=== PATIENT | female | born 1945 | race Caucasian/White ===

== ENCOUNTER 2016-07-26 05:11 | Day surgery (SDC) | payer OTHER ==
[~2016-07-26] VITALS: Ht 167.6 cm; Wt 93.0 kg
[~2016-07-26 05:11] MED LIST: ALLOPURINOL300 MG PO; ATENOLOL50 MG PO; DESLORATADINE5 MG PO; JANUMET 50/11 TABLET PO; LOSARTAN POTASS25 MG PO; MAGNESIUM400 M1 PO; NASONEX17 GM BOTH NARES; PRAVACHOL40 MG PO; PROBIOTIC1 EAC2 PO; [UNRECOGNIZED DRUG - OTHER] PO
[2016-07-26 05:56] VITALS: BP 128/60
[2016-07-26 06:03] LABS: POINT-OF-CARE METER ID UU14174212
[2016-07-26 10:37] LABS: POINT-OF-CARE METER ID UU13113675; POINT-OF-CARE USER ID 515036437
[2016-07-26 11:32] VITALS: BP 132/63
[2016-07-26 12:39] VITALS: BP 130/63
[2016-07-26 13:10] VITALS: BP 175/80
== END 2016-07-26 13:17 | disposition home or self-care (01) ==
LOC: SDC 05:11
PROVIDERS: Otolaryngology
PROC: 09BV4ZZ Excision of Left Ethmoid Sinus, Percutaneous Endoscopic Approach (ICD-10-PCS; principal; 2016-07-26)
PROC: 095L0ZZ Destruction of Nasal Turbinate, Open Approach (ICD-10-PCS; principal; 2016-07-26)
PROC: 09BM0ZZ Excision of Nasal Septum, Open Approach (ICD-10-PCS; principal; 2016-07-26)
DX: J34.2 Deviated nasal septum (principal); J32.2 Chronic ethmoidal sinusitis; J31.0 Chronic rhinitis; G50.1 Atypical facial pain; J34.89 Other specified disorders of nose and nasal sinuses; I10 Essential (primary) hypertension; M10.9 Gout, unspecified; E66.9 Obesity, unspecified; Z68.33 Body mass index [BMI] 33.0-33.9, adult; Z88.8 Allergy status to other drugs, medicaments and biological substances
CPT/HCPCS: 82948; 88305; J0131; J0690; J1100; J2250; J2405; J2710; J3010; J3301; J7050